=== PATIENT | female | born 1980 | race African-American/Black ===

== ENCOUNTER 2022-08-23 22:08 | Emergency (ER) | payer SELFPAY ==
[~2022-08-23] VITALS: Ht 175.3 cm; Wt 79.0 kg
[2022-08-23] MEDS ORDERED: CLONIDINE 0.1MG TABLET PO ONE (23:15)
[2022-08-23] MEDS ORDERED: ONDANSETRON HCL 4MG/2ML INJ IV ONE (23:15)
[2022-08-23 23:59] LABS: BASOPHILS % 0.8 % (0.0-2.0); EOSINOPHILS % 2.7 % (0.0-5.0); HEMATOCRIT. 32.7 % (36.0-48.0); HEMOGLOBIN. 10.5 g/dL (12.0-16.0); LYMPHOCYTES % 30.6 % (20.0-50.0); MEAN CORPUSCULAR HEMOGLOBIN 26.3 pg (28.0-32.0); MEAN CORPUSCULAR VOLUME 81.6 fL (81.0-99.0); MEAN PLATELET VOLUME 9.5 fl (7.4-10.4); MONOCYTES % 7.7 % (2.0-8.0); NEUTROPHILS % 58.2 % (40.0-76.0); PLATELET 228 x1000/uL (130-400); RED CELL DISTRIBUTION WIDTH 15.4 % (11.6-14.6)
[2022-08-24 00:07] LABS: CHLORIDE 110 mEq/L (98-107)
[2022-08-24 00:18] LABS: ETHANOL BLOOD < 10 mg/dL
[2022-08-24 01:33] LABS: *AMPHETAMINES SCREEN URINE NEGATIVE (NEGATIVE); *BARBITURATES SCREEN URINE NEGATIVE (NEGATIVE); *BENZODIAZEPINES SCREEN URINE NEGATIVE (NEGATIVE); *COCAINE SCREEN URINE NEGATIVE (NEGATIVE); CANNABINOID URINE SCREEN NEGATIVE (NEGATIVE); METHADONE URINE SCREEN NEGATIVE (NEGATIVE); OPIATES URINE SCREEN NEGATIVE (NEGATIVE); PHENCYCLIDINE URINE SCREEN NEGATIVE (NEGATIVE)
[2022-08-24 03:45] VITALS: BP 126/78
== END 2022-08-24 04:00 | disposition home or self-care (01) ==
LOC: ER 22:08
DX: R45.7 State of emotional shock and stress, unspecified (principal); R03.0 Elevated blood-pressure reading, without diagnosis of hypertension
CPT/HCPCS: 36415; 70450; 80053; 80305; 80320; 85025; 96374; 99284; J2405; G0480